=== PATIENT | female | born 1990 | race Caucasian/White ===

== ENCOUNTER 2020-03-28 06:31 | Outpatient (NON) | payer SELFPAY ==
[2020-03-30 16:41] LABS: SARS-CoV-2 RNA PCR Negative
== END 2020-03-28 06:32 ==
PROVIDERS: PCP Nurse Practitioner Family; Visit Provider Nurse Practitioner Family
DX: R50.9 Fever, unspecified (principal); J02.9 Acute pharyngitis, unspecified; Z20.828 Contact with and (suspected) exposure to other viral communicable diseases
CPT/HCPCS: 87635; C9803; U0003

== ENCOUNTER → 2020-09-30 14:26 | Outpatient (CLI) | payer BC, SELFPAY ==
--- NOTE | ~2020-09-30 | CT_ITS ---
EXAMINATION: CT sinus wo con DATE: 09/30/2020 14:53 INDICATION: Chronic sinusitis TECHNIQUE: Computed tomography (CT) of the paranasal sinuses was performed without intravenous contra st. The dose-length product was 278.24 mGy-cm. Automated exposure control and iterative reconstructio n technique were employed. COMPARISON: None FINDINGS: No significant mucosal thickening. No air-fluid levels. Rightward nasal septal deviation. O stiomeatal units are patent. Mastoids are pneumatized. No depressed skull fractures. IMPRESSION: 1. No significant sinus disease. Reviewed, dictated and finalized at location A.
== END ==
PROVIDERS: PCP Nurse Practitioner Family; Visit Provider Otolaryngology
DX: J32.9 Chronic sinusitis, unspecified (principal)
CPT/HCPCS: 70486

== ENCOUNTER 2021-04-20 15:54 | Emergency (ER) | payer BC, SELFPAY ==
--- NOTE | 2021-04-20 15:59 | ED.URI ---
HPI - URI/Sore Throat General Chief Complaint: Upper Respiratory Infection Stated Complaint: cough/chest congestion Time Seen by Provider: 04/20/21 15:59 Source: patient and RN notes reviewed History of Present Illness HPI Narrative: Patient is a 30-year-old female who presents the urgent care with complaints of chest congestion, cough and intermittent fevers. Patient states that she has had 2 Covid swabs since her symptoms started within the last week, and both have been negative. Patient has also been tested for influenza which was also negative. Patient states that she has been taking Mucinex, Tessalon Perles, Claritin, and fever reducers. 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 Denies of any known exposures. Patient was seen at [place] [facility] on Monday and was not given a prescription for antibiotics. Patient was on Augmentin on April 02 and prednisone on April 06. No other complaints. Distress noted. Patient read the plan of care. Some parts of this dictation were generated by voice recognition software and may contain typographical and/or grammatical inaccuracies. Related Data Home Medications Medication Instructions Recorded Confirmed albuterol sulfate INHALATION 04/20/21 erenumab-aooe [Aimovig mg SUBCUT 04/20/21 Autoinjector] eszopiclone mg 04/20/21 fluconazole 04/20/21 lorazepam 04/20/21 propranolol 04/20/21 Allergies Allergy/AdvReac Type Severity Reaction Status Date / Time clindamycin Allergy Mild unknown Verified 03/21/18 16:38 Review of Systems Review of Systems: CONSTITUTIONAL: Reports of intermittent fevers EYES: Denies visual changes, redness, or discharge. ENT: Denies rhinorrhea, sore throat, or otalgia. Reports of sinus congestion CARDIOVASCULAR: Denies chest pain, palpitations, or edema. RESPIRATORY: Reports of chest congestion and cough GASTROINTESTINAL: Denies abdominal pain, nausea, vomiting, or diarrhea. GENITOURINARY: Denies dysuria or hematuria. SKIN: Denies rash or itching. MUSCULOSKELETAL: Denies back pain, joint pain, or myalgia. NEUROLOGIC: Denies headache, numbness, or weakness. All other systems reviewed are negative, except as documented in HPI. PMFSH Comments At the time of my signature, I reviewed and agree with the nursing past medical, surgical, social, and family history. There is no relevant family history pertinent to the patient complaint. Exam Narrative: GENERAL: This is a well-nourished, well-developed patient, in no apparent distress. HEAD: normocephalic, atraumatic. EYES: PERRL. Sclera clear/white. Vision is grossly intact. EARS: External ears normal, auditory canals clear and without drainage, TMs normal without perforation. Hearing grossly intact. NOSE: External nose normal with no obvious nasal discharge, nares without redness, clear rhinorrhea. THROAT: Mucous membranes moist, posterior pharynx clear. Mild postnasal drainage NECK: Neck supple CARDIOVASCULAR: Regular rate and rhythm without murmurs, gallops, or rubs. RESPIRATORY: Clear to auscultation. Breath sounds equal bilaterally. No wheezes, rales, or rhonchi. SKIN: warm, intact with no suspicious lesions or rash, good texture and turgor. NEURO: awake, alert, and oriented to person, place and time. There were no obvious focal neurologic abnormalities. EXTREMITIES: No clubbing, cyanosis, or edema. Course Vital Signs Vital signs: Vital Signs Temperature 98.9 F 04/20/21 16:00 Pulse Rate 96 04/20/21 16:00 Respiratory Rate 16 04/20/21 16:00 Blood Pressure 149/94 H 04/20/21 16:00 Pulse Oximetry 99 04/20/21 16:00 Temperature 98.9 F 04/20/21 16:06 Pulse Rate 96 04/20/21 16:06 Respiratory Rate 16 04/20/21 16:06 Blood Pressure 149/94 H 04/20/21 16:06 Pulse Oximetry 99 04/20/21 16:06 Reviewed-patient is informed that they may have pre-hypertension or hypertension based on a blood pressure reading in the departmen
[2021-04-20 16:00] VITALS: BP 149/94; PULSE 96; RESP 16; TEMP 37.2; O2SAT 99
[2021-04-20 16:06] VITALS: BP 149/94; PULSE 96; RESP 16; TEMP 37.2; O2SAT 99
== END 2021-04-20 16:22 | disposition home or self-care (01) ==
PROVIDERS: Emergency Provider Nurse Practitioner Family; PCP Nurse Practitioner Family
DX: B34.9 Viral infection, unspecified (principal)
CPT/HCPCS: 99213; G0463

== ENCOUNTER 2022-05-19 21:56 | Emergency (ER) | payer OTHER, SELFPAY ==
--- NOTE | ~2022-05-19 | XR_ITS ---
XR toe 5th RT min 2V DATE: 05/19/2022 22:32 INDICATION: Laceration. Evaluate for fracture or foreign body TECHNIQUE: 3 views of fifth toe COMPARISON: None FINDINGS: No fracture or dislocation, periosteal reaction or bone destruction. No radiopaque soft tis hayder foreign body. IMPRESSION: Negative Reviewed, dictated and finalized at location A. BODY TECHNICIAN IMPRESSION: Negative
[2022-05-19 22:03] VITALS: BP 146/89; PULSE 90; RESP 18; TEMP 36.7; O2SAT 94
--- NOTE | 2022-05-19 22:22 | ED.WOUNDLAC ---
HPI - Wound/Laceration General Chief Complaint: Wound/Laceration Stated Complaint: cut foot open Time Seen by Provider: 05/19/22 22:13 Source: patient Mode of arrival: ambulatory Limitations: no limitations History of Present Illness HPI narrative: Patient is a 31 y/o female who presents to the ED with c/o a laceration to her R 5th toe. Patient reports she tripped over a baby gate and her foot became stuck in one of the lattices. She sustained a laceration to the plantar surface of her R 5th toe. She has been able to ambulate since then but avoiding pressure on that toe. No other injuries. No numbness/tingling. Tetanus status 2012. Related Data Home Medications Medication Instructions Recorded Confirmed albuterol sulfate 90 mcg/actuation inhalation 04/20/21 aerosol inhaler erenumab-aooe 70 mg/mL mg subcut 04/20/21 subcutaneous auto-injector (Aimovig Autoinjector) eszopiclone 2 mg tablet mg 04/20/21 fluconazole 100 mg tablet 04/20/21 lorazepam 1 mg tablet 04/20/21 propranolol 20 mg tablet 04/20/21 Allergies Allergy/AdvReac Type Severity Reaction Status Date / Time clindamycin Allergy Mild unknown Verified 03/21/18 16:38 Review of Systems Review of Systems: CONSTITUTIONAL: Denies fever, chills, or sweats. SKIN: See HPI. NEUROLOGIC: Denies tingling, numbness, or weakness. All systems reviewed & are unremarkable except as noted in HPI and below PMFSH Past Medical History Medical History Insomnia Surgical History Surgical History (Updated 05/19/22 @ 22:25 by Doris Shetty PA-C) No pertinent past surgical history Social History Social History (Updated 05/19/22 @ 22:25 by Doris Shetty PA-C) Smoking status: Never smoker Exam Narrative: GENERAL: Well appearing, well-nourished, non-toxic, in no acute distress. HEAD: Normocephalic, atraumatic. NECK: Supple. No adenopathy, no masses. RESPIRATORY: Airway patent, respirations nonlabored. CARDIOVASCULAR: Regular rate and rhythm without murmurs, rubs, or gallops. Pedal pulses 2+ and equal bilaterally. MUSCULOSKELETAL: Moves all extremities. Strength/ROM intact without gross deformities. 1 cm laceration to plantar surface of R 5th toe at level of DIP joint. No active bleeding. Sensation intact. Good capillary refill. SKIN: Warm, dry, normal color. No rashes. NEURO: A&O X3. Speech clear. Cranial nerves II-XII grossly intact. No ataxic movements. PSYCHIATRIC: Appropriate mood and affect. Normal interaction. Course Vital Signs Vital signs: Vital Signs Temperature 98.0 F 05/19/22 22:03 Pulse Rate 90 05/19/22 22:03 Respiratory Rate 18 05/19/22 22:03 Blood Pressure 146/89 H 05/19/22 22:03 Pulse Oximetry 94 05/19/22 22:03 Oxygen Delivery Room Air 05/19/22 22:03 Temperature 98.0 F 05/19/22 22:03 Pulse Rate 90 05/19/22 22:03 Respiratory Rate 18 05/19/22 22:03 Blood Pressure 146/89 H 05/19/22 22:03 Pulse Oximetry 94 05/19/22 22:03 Oxygen Delivery Room Air 05/19/22 22:03 Procedures Laceration Laceration 1: Date: 05/19/22 Time: 23:00 Site: lower extremity (plantar surface of R 5th toe) Side (If applicable): right Size (cm): 1 Description: linear Depth: simple, single layer Local Anesthetic: lidocaine 1% Amount of anesthesia used (mL): 3 Pre-repair: wound explored and irrigated ====== Skin Level ====== Skin layer closed with: nylon Size (cm): 4-0 Number of sutures: 3 Technique: simple, interrupted ====== Subcutaneous Layer ====== ====== Muscle Layer ====== ====== Tendon Layer ====== MDM - Wound/Laceration MDM Narrative Medical decision making narrative: Patient presented to ED with laceration to plantar surface of right fifth toe. No active bleeding by the time of my evaluation. Sensation intact. X-ray w
[2022-05-19] MEDS: TETANUS,DIPHTHERIA,AC PERTUSSIS ADULT (0.5 ML) BOOSTRIX IM (22:49)
[2022-05-19 23:58] VITALS: BP 112/68; PULSE 64; RESP 16; TEMP 36.6; O2SAT 100
== END 2022-05-19 23:55 | disposition home or self-care (01) ==
PROVIDERS: Emergency Provider Physician Assistant; PCP Nurse Practitioner Family
DX: S91.114A Laceration without foreign body of right lesser toe(s) without damage to nail, initial encounter (principal); Z23 Encounter for immunization; W22.8XXA Striking against or struck by other objects, initial encounter
CPT/HCPCS: 12001; 73660; 90471; 90715; 99283